=== PATIENT | male | born 1995 | race Caucasian/White ===

== ENCOUNTER 2019-09-26 10:40 | Inpatient (IN) | payer MEDICARE, OTHER ==
[~2019-09-26 10:40] MED LIST: BUPIV. HCL 0.25% (2.5MG/ML)/EPI. (1:200,000) PF 10 ML VIAL IM ONE; DEXAMETHASONE SODIUM PHOSPHATE 10 MG/ML VIAL ONE; FAMOTIDINE 20 MG/2 ML VIAL IV ONE; LACTATED RINGERS 1,000 ML IV.SOLN IV ONE; LIDOCAINE HCL 1% PF 300MG/30ML VIAL ONE; LIDOCAINE HCL 2% PF 100MG/5ML VIAL IJ ONE; MIDAZOLAM HCL 2 MG/2 ML VIAL ONE; ONDANSETRON HCL/PF 4 MG/ 2ML VIAL ONE; PROPOFOL 200 MG/20 ML VIAL IV ONE; ROCURONIUM BROMIDE 10 MG/ML 5ML VIAL ONE; SCOPOLAMINE HYDROBROMIDE 1.5MG/72HR PATCH TD ONE; SEVOFLURANE 250 ML LIQUID IH ONE; SODIUM CHLORIDE IRRIG SOLUTION 3,000 ML IRRIG.SOLN IR ONE; SUCCINYLCHOLINE CHLORIDE 200 MG/10 ML VIAL ONE; SUGAMMADEX SODIUM 200 MG/2 ML VIAL IV ONE; ceFAZolin SODIUM 1 GM VIAL ONE
[2019-09-26] MEDS ORDERED: fentaNYL CITRATE/PF 100 MCG/2 ML INJ. ONE (14:21)
[2019-09-26] MEDS ORDERED: MEPERIDINE (NF) 100 MG/ML INJ ONE (14:32)
[2019-09-26 15:20] VITALS: BMI 61.5
[2019-09-26] MEDS ORDERED: MORPHINE SULFATE 2 MG/ML VIAL IV PRN (15:21)
[2019-09-26] MEDS ORDERED: ACETAMINOPHEN 1,000 MG/100 ML INJ IV PRN (15:21)
[2019-09-26] MEDS ORDERED: HYDROcodone-ACETAMIN 7.5-325/15ML SOLN UD CUP PO PRN (15:21)
[2019-09-26] MEDS ORDERED: IPRATROPIUM/ALBUTEROL SULFATE 3 ML AMPUL.NEB NEB PRN (15:21)
[2019-09-26] MEDS ORDERED: PROMETHAZINE HCL 25 MG in 0.9 % SODIUM CHLORIDE 50 ML IV PRN (15:21)
--- NOTE | 2019-09-26 15:25 | History and Physical Report ---
History of Present Illnes - History of Present Illness Reason for Visit: S/P LAPAROSCOPIC VERTICAL SLEEVE GASTRECTOMY History of Present Illness: Patient is a 24-year-old male who has tried multiple diets and exercise programs with no success. He has always struggled with his weight since he was a child. Patient and surgeon decided to proceed with gastric sleeve procedure. Procedure went well. He will be admitted and monitored s/p surgical intervention. Patient has been on a liquid diet prior to surgery so he is a risk of dehydration s/p surgery. He will be admitted for IV hydration to help hydrate patient until he is able to tolerate a sufficient oral intake, will treat pain with IV medication until patient is able to tolerate oral meds, IV antiemetics to help reduce episodes of nausea and/or vomiting. Patient will be monitored closely using telemetry s/p surgery d/t morbid obesity. Will encourage incentive spirometer for morbid obesity. Will monitor respiratory status due to asthma. Patient appears very uncomfortable s/p surgery. - Past Medical History Cardiac: Hyperlipidemia Pulmonary: Asthma Psych: Anxiety, Depression Musculoskeletal: Chronic low back pain Endocrine: obesity - Past Surgical History Past Surgical History: Tonsillectomy (ADENOIDS) - Past Family History Mother Family History: DM, Other (OBESITY) Father Family History: Other (HEPATITIS, OBESITY) - Past Social History Smoke: Quit Occupation: DISABLED Alcohol: Occassional (QUIT 07/2018) Drugs: None Lives: With Family Domestic Violence: Negative - Health Maintenance Health Maintenance: Cholesterol Influenza Vaccine: No Pneumonia Vaccine: No Resuscitation Status: Resusciation Status Resuscitation Status Full Code Review of Systems - Review of Systems Constitutional: Weakness Eyes: negative: conjunctivae inflammation, eyelid inflammation ENT: negative: Throat Pain Respiratory: SOB with Excertion Cardiovascular: negative: Chest Pain Gastrointestinal: Nausea, Vomiting, Abdominal Pain Genitourinary: negative: Dysuria Musculoskeletal: Back Pain Skin: Other (excoriation under pannus) Neurological: Weakness - Medications/Allergies Allergies/Adverse Reactions: Allergies Allergy/AdvReac Type Severity Reaction Status Date / Time aripiprazole [From Abilify] Allergy Verified 09/26/19 15:03 Exam - Exam Vital Signs: Vital Signs (72 hours) 09/26/19 09/26/19 15:12 15:18 Temperature 97.3 F L 97.3 F L Pulse Rate [ 90 90 Right] Respiratory 20 20 Rate Blood Pressure 146/72 146/72 [Right Arm] O2 Sat by Pulse 98 98 Oximetry General: Alert, Oriented to Person, Oriented to Place, Cooperative, Moderate distress, Morbidly Obese HEENT: Atraumatic, PERRLA, Mouth Mucous membr. moist/[place], Nose Mucous membr. moist/[place] Neck: Normal Range of Motion Carotids: No bruit Lungs: Clear to auscultation, Normal air movement Cardiovascular: Regular rate, Normal S1, Normal S2 Peripheral Edema: Generalized Peripheral Pulses: 2+ Abdomen: Soft, Decreased Bowel Sounds Integumentary: Warm, Dry, Pale, Other (incisions x 5 without redness/erythema/drainage; skin adhesive intact) Extremities: Normal pulses, No tenderness/swelling Neurological: Normal speech, Strength Equal Bilat, Generalized Weakness Psych/Mental Status: Mental status NL, Mood NL Assessment/Plan - Assessment/Plan (1) Status post laparoscopic sleeve gastrectomy Status: Acute Current Visit: Yes Plan: Plan to admit for IV hydration, IV pain meds, and IV antiemetics. Lovenox and SCDs to help prevent DVTs, IS and frequent ambulation will be implemented. Start ice chips and advance diet as tolerated. IV pepcid BID (2) Morbid obesity due to excess calories Status: Acute Current Visit: Yes Plan: Patient is s/p gastric sleeve. We will assist patient with implementing gastric sleeve diet protocol starting with ice chips and clear liquids and advancing as tolerated (3) Nausea and vomiting Status: Acute Current Visit: Yes Plan: Pepcid IV BID ordered; IV antiemetics, and IVFs (6) Anxiety and depression Status: Acute Current Visit: Yes Plan: Will hold medications at this time; will monitor closely (7) Chronic back pain Status: Acute Current Visit: Yes Plan: Patient will be receiving pain medications; may use heating pad as needed (4) GERD (gastroesophageal reflux disease) Status: Acute Current Visit: Yes Plan: Pepcid IV BID ordered (5) Asthma Status: Acute Current Visit: Yes Plan: Duonebs ordered prn (6) Depression Status: Acute Current Visit: Yes Plan: Will hold medications at this time; will monitor closely VTE Assessment - RISK FACTOR SCORE VTE RISK FACTOR SCORES: OBESITY, MAJOR SURGERY/ANESTHESIA TIME > 1 HOUR - RISK VTE MODERATE RISK: SCORE OF 2 (RISK PROXIMAL DVT 2-4%) PROPHYAXIS NEEDED (Lovenox daily, SCDs while in bed, incentive spirometer, frequent ambulation)
[2019-09-26] MEDS: 0.9 % SODIUM CHLORIDE 1,000 ML IV SCH ×2 (15:42→23:11)
[2019-09-26] MEDS: FAMOTIDINE 20 MG/2 ML VIAL IVP SCH (20:15)
[2019-09-26] MEDS: ceFAZolin SODIUM 1 GM in 0.9 % SODIUM CHLORIDE 50 ML IV SCH (20:19)
[2019-09-27] MEDS: ONDANSETRON HCL/PF 4 MG/ 2ML VIAL IVP PRN ×3 (04:50→12:14)
[2019-09-27] MEDS: ceFAZolin SODIUM 1 GM in 0.9 % SODIUM CHLORIDE 50 ML IV SCH (04:53)
[2019-09-27] MEDS: 0.9 % SODIUM CHLORIDE 1,000 ML IV SCH ×3 (05:58→19:18)
[2019-09-27 06:48] LABS: BASOPHILS % 0.4 % (0.0-1.5); NEUTROPHILS # 11.1 # k/uL (1.4-7.7); eGFR (Non-African) > 60
--- NOTE | 2019-09-27 06:48 | Inpatient Progress Note ---
Subjective - Required Recertification Statement I anticipate X number of days because-include discharge plan: 1 - Review of Systems Events since last encounter: Patient is sitting up to the side of the bed this morning awake. He states that he did not get much sleep. He was having a lot of discomfort last night. He states that pain is improving. He has had some nausea and moderate discomfort from the gas. He denies any chest pain or shortness of breath. He has been up ambulating in the halls and using incentive spirometer while awake. He is compliant with care. General: Denies: Fatigue HEENT: Denies: Head Aches, Dysphasia Pulmonary: Denies: Dyspnea Cardiovascular: Denies: Chest Pain, Edema Gastrointestinal: Nausea, Abdominal Pain. Denies: Vomiting Genitourinary: Denies: Dysuria Musculoskeletal: Back Pain Neurological: Weakness Objective - Exam Vitals and I&O: Vital Signs Temp 97.4 F L 09/27/19 05:54 Pulse 96 H 09/27/19 05:54 Resp 20 09/27/19 05:54 BP 151/85 09/27/19 05:54 Pulse Ox 95 09/27/19 06:00 Intake & Output 09/26/19 09/26/19 09/27/19 11:59 23:59 11:59 Intake Total 130 60 Output Total 0 Balance 130 60 Weight 205.931 kg Intake: Oral 130 60 Output: Urine 0 Other: Voiding Method Toilet Toilet # Voids 2 General: Alert, Oriented to Person, Oriented to Place, Oriented to Time, Cooperative, Mild distress, Morbidly Obese HEENT: Atraumatic, PERRLA, Mouth Mucous membr. moist/[place], Nose Mucous membr. moist/[place] Neck: Supple, +2 carotid pulse wo bruit Lungs: Clear to auscultation, Normal air movement, Speaks full Sentences Cardiovascular: Regular rate, Normal S1, Normal S2 Abdomen: Soft, Decreased Bowel Sounds Extremities: No edema, Normal pulses, No tenderness/swelling Skin: Normal, [place], Warm, Dry, Other (Incisions without redness/erythema/drainage; Skin adhesive intact) Neurological: Normal gait, Normal speech, Strength Equal Bilat Psych/Mental Status: Mental status NL, Mood NL, Appropriate Affect - Results Results: Laboratory Results WBC 12.80 K/ul (4.00-12.00) H 09/27/19 05:15 RBC 5.52 M/ul (3.90-5.20) H 09/27/19 05:15 Hgb 14.4 g/dL (12.0-18.0) 09/27/19 05:15 Hct 44.9 % (37.0-53.0) 09/27/19 05:15 MCV 81.0 fl (80.0-100.0) 09/27/19 05:15 MCH 26.0 pg (28.0-34.0) L 09/27/19 05:15 MCHC 32.0 g/dL (30.0-36.0) 09/27/19 05:15 RDW 13.4 % (11.3-14.3) 09/27/19 05:15 Plt Count 255 K/mm3 (130-400) 09/27/19 05:15 Neut % (Auto) 87.1 % (39.0-79.0) H 09/27/19 05:15 Lymph % (Auto) 6.0 % (16.0-50.0) L 09/27/19 05:15 [place] % (Auto) 5.7 % (0.0-11.0) 09/27/19 05:15 Eos % (Auto) 0.8 % (0.0-6.8) 09/27/19 05:15 Baso % (Auto) 0.4 % (0.0-1.5) 09/27/19 05:15 Neut # (Auto) 11.1 # k/uL (1.4-7.7) H 09/27/19 05:15 Lymph # (Auto) 0.8 # k/uL (0.6-4.0) 09/27/19 05:15 [place] # (Auto) 0.7 # k/uL (0.0-0.9) 09/27/19 05:15 Eos # (Auto) 0.1 # k/uL (0.0-0.6) 09/27/19 05:15 Baso # (Auto) 0.1 # k/uL (0.0-0.5) 09/27/19 05:15 Assessment/Plan - Assessment/Plan (1) Status post laparoscopic sleeve gastrectomy Status: Acute Current Visit: Yes Assessment: Patient experiencing nausea; has been ambulating, wearing SCDs while in bed, using incentive spirometry, patient receiving lovenox to prevent DVT Plan: Patient getting IV fluids for hydration, IV pain meds, and IV antiemetics. Lovenox and SCDs to help prevent DVTs, IS and frequent ambulation will be implemented. Patient eating ice chips and will advance diet to clear liquids as tolerated once nausea and vomiting is controlled. Will continue with Pepcid IV BID for GI upset (2) Morbid obesity due to excess calories Status: Acute Current Visit: Yes Assessment: Patient tolerating ice chips and water; some nausea Plan: Will advance diet to clear liquids today (3) Nausea and vomiting Status: Acute Current Visit: Yes Assessment: Patient having nausea; able to sip on fluids Plan: Will continue with Zofran and phenergan (4) GERD (gastroesophageal reflux disease) Status: Acute Current Visit: Yes Assessment: Patient c/o nausea will continue to monitor Plan: Give Pepcid IV 20mg BID (5) Asthma Status: Acute Current Visit: Yes Assessment: LCTA Plan: Duoneb prn (6) Depression Status: Acute Current Visit: Yes Assessment: sTable Plan: Will hold medications at this time
[2019-09-27] MEDS: FAMOTIDINE 20 MG/2 ML VIAL IVP SCH ×2 (08:40→21:45)
[2019-09-27] MEDS ORDERED: ENOXAPARIN SODIUM 40 MG/0.4 ML DISP.SYRIN SQ SCH (15:22)
[2019-09-28 06:05] VITALS: BP 151/75
--- NOTE | 2019-09-28 07:20 | Discharge Summary ---
Discharge Summary - Discharge [facility] Admission Date: 09/26/19 Discharge Date: 09/28/19 Discharge To: Home History of Present Illness: Patient is a 24-year-old male who has tried multiple diets and exercise programs with no success. He has always struggled with his weight since he was a child. Patient and surgeon decided to proceed with gastric sleeve procedure. Procedure went well. He will be admitted and monitored s/p surgical intervention. Patient has been on a liquid diet prior to surgery so he is a risk of dehydration s/p surgery. He will be admitted for IV hydration to help hydrate patient until he is able to tolerate a sufficient oral intake, will treat pain with IV medication until patient is able to tolerate oral meds, IV antiemetics to help reduce episodes of nausea and/or vomiting. Patient will be monitored closely using t elemetry s/p surgery d/t morbid obesity. Will encourage incentive spirometer for morbid obesity. Will monitor respiratory status due to asthma. Patient appears very uncomfortable s/p surgery. Condition at Discharge: Stable Home Medications: Ambulatory Orders Medication Instructions Recorded Buspirone HCl [Buspar] 10 mg PO BID 09/26/19 Cetirizine HCl [Zyrtec] 10 mg PO DAILY 09/26/19 Ergocalciferol (Vitamin D2) 50,000 unit PO WEEK 09/26/19 [Vitamin D2] Haloperidol 2 mg PO HS 09/26/19 Multivitamin [One-Daily 1 each PO DAILY 09/26/19 Multi-Vitamin] Consultations this Visit: None Procedures this Visit: Other (S/P LSG) Allergies/Adverse Reactions: Allergies Allergy/AdvReac Type Severity Reaction Status Date / Time aripiprazole [From Abilify] Allergy Verified 09/26/19 15:03 Discharge Summary: Patient is a 24-year-old male that underwent the gastric sleeve procedure. He had some issues with nausea and dry heaves but has done well. He has been very cooperative with his care by ambulating frequently, using her incentive spirometer, and wearing his SCDs while in bed. He has been compliant with his diet during hospitalization. He is having minimal discomfort at this time and minimal nausea- he has been passing gas and belching. He is aware of discharge instructions and what he can and cannot do post surgical- he is aware of the strict diet he must follow to decrease discomfort and have success after procedure. He has family support and family will be taking her home- medications written by surgeon given to patient. He feels ready to go home. Hospital Course: Patient received IV pain medications, antiemetics, and IVF and was transitioned to oral. She has been up ambulating and using incentive spirometer. - Final Diagnosis (1) Status post laparoscopic sleeve gastrectomy Problems: Continue with bariatric sleeve diet- clear liquids today and start full liquids tomorrow; protein shake 80-100 grams protein Right or Left: Right (2) Morbid obesity due to excess calories Problems: Incision without redness or drainage, positive bowel sounds, minimal discomfort, belching and flatus, no extremity pain or edema, LCTA Right or Left: Right (3) Nausea and vomiting Problems: Script for antiemetic given Right or Left: Right (4) GERD (gastroesophageal reflux disease) Problems: Stable- continue on home meds Right or Left: Right (5) Asthma Problems: Stable- continue on home meds Right or Left: Right (6) Depression Problems: Stable- continue on home meds Right or Left: Right
[2019-09-28] MEDS ORDERED: ONDANSETRON HCL 4 MG TAB.RAPDIS ONE (07:42)
[2019-09-28] MEDS ORDERED: ONDANSETRON HCL 4 MG TAB.RAPDIS PO PRN (07:44)
--- NOTE | 2019-10-01 15:30 | Operative Note ---
PROCEDURE DATE: 09/26/2019 PREOPERATIVE DIAGNOSIS: 1. Morbid obesity. 2. Hyperlipidemia. POSTOPERATIVE DIAGNOSIS: 1. Morbid obesity. 2. Hyperlipidemia. PROCEDURES PERFORMED: 1. Laparoscopic vertical sleeve gastrectomy. 2. Upper gastrointestinal endoscopy. SURGEON: Ned Alatorre M.D. INDICATIONS FOR PROCEDURE: Mr. Saenz is a 24-year-old male who presented with features of morbid obesity and the above-listed comorbidities. The patient was advised laparoscopic vertical sleeve gastrectomy and possible hiatal hernia repair. The patient showed understanding and agreed to proceed. DESCRIPTION OF PROCEDURE: After explaining to the patient in detail and informed consent was obtained, the patient was identified in the preoperative holding area. The patient was transferred to the operating room and was placed in supine position. Sequential compressive devices were placed for DVT prophylaxis. Preoperative antibiotics were given. After induction of anesthesia, the abdomen was prepped and draped in a sterile fashion. Through a left upper quadrant 1-cm incision, and using Optiview technique, the peritoneal cavity was entered and pneumoperitoneum was created. Thereafter, under direct vision, another 5-mm trocar was placed in the left midabdomen and another 15-mm trocar was placed in the right midabdomen. Through a 1-cm incision in the right subcostal region, another 5-mm trocar was placed. Through a 1-cm incision in the epigastrium, a Leesa retractor was introduced and the left lobe of the liver was retracted. On initial inspection, the patient was noted to have no evidence of hiatal hernia. I took down the gastroepiploic vessels using a LigaSure. This was continued superiorly. The short gastric vessels were taken down. The gastrophrenic ligament was divided and the Angle of His was mobilized. The posterior attachments of the stomach on the pancreas were released. Distally, the gastroepiploic vessels were taken down up to about 4 cm proximal to the pylorus. At this point, a #38 [place]ian Hurst Bougie was introduced into the stomach and was placed along the lesser curve. The stomach was then divided in a vertical fashion with multiple Endo RICA Covidien Black Load Staplers. The first firing was directed outwards towards the greater curvature. Subsequent firings were directed towards the Angle of His to create a loose sleeve around the #38 Bulgarian bougie. The bougie was then removed and an upper GI endoscopy was performed at this point. The scope was introduced into the esophagus and was gradually advanced into the stomach. The GE junction appeared normal. The sleeve size appeared normal. No evidence of any active bleeding was noted. The stomach was insufflated with air and irrigation of fluid along the staple line revealed no evidence of air leak. The stomach was then suctioned out and the scope was removed. Absolute hemostasis was ensured. Thorough saline irrigation was given. The Leesa retractor was removed. Approximately 10 mL of a lidocaine- Marcaine mix was instilled under the left hemidiaphragm. The sleeve gastrectomy specimen was removed. The abdomen was then deflated. The incisions were closed with 4-0 Monocryl. Dermabond was applied. Approximately 10 mL of a lidocaine- Marcaine mix was injected into all the incisions. The patient was awakened from anesthesia and was transferred to the recovery room in stable condition. ESTIMATED BLOOD LOSS: Approximately 20 mL. CONDITION OF THE PATIENT: Stable. FLUIDS GIVEN: Per Anesthesia note. SPECIMEN(S) SENT: Sleeve gastrectomy specimen. COMPLICATIONS: None. ANESTHESIA: General. Ned Alatorre M.D. [place] NENA/iveth (Please copy [facility] provider when applicable) Job #[id number] WAQAS
== END 2019-09-28 09:25 | disposition home or self-care (01) | DRG 621 ==
LOC: OPSURG 10:40 → SOUTH 14:55
PROVIDERS: ADMIT Nurse Practitioner Family; ATTEND Nurse Practitioner Family
PROC: 0DB64Z3 Excision of Stomach, Percutaneous Endoscopic Approach, Vertical (ICD-10-PCS; principal; 2019-09-26)
DX: E66.01 Morbid (severe) obesity due to excess calories (principal); J45.909 Unspecified asthma, uncomplicated; K21.9 Gastro-esophageal reflux disease without esophagitis; F32.9 Major depressive disorder, single episode, unspecified; E78.5 Hyperlipidemia, unspecified; G89.29 Other chronic pain; M54.5 Low back pain; Z79.899 Other long term (current) drug therapy; Z88.8 Allergy status to other drugs, medicaments and biological substances; Z87.891 Personal history of nicotine dependence; Z68.44 Body mass index [BMI] 60.0-69.9, adult
CPT/HCPCS: 80053; 85025; 97116; 97530; A9270; J0330; J0690; J1650; J2001; J2175; J2250; J2405; J2704; J3010; J7030; J7120; 43235; 43775; 99221; 99231; 99238